=== PATIENT | female | born 1965 | race Caucasian/White ===

== ENCOUNTER 2018-12-12 17:45 | Emergency (ER) | payer OTHER ==
[~2018-12-12] VITALS: Ht 152.4 cm; Wt 68.0 kg
[2018-12-12 18:10] LABS: URINE BILIRUBIN NEGATIVE (Negative); URINE BLOOD 3+ (Negative); URINE CLARITY CLEAR; URINE COLOR YELLOW; URINE GLUCOSE-RANDOM* NEGATIVE (Negative); URINE KETONES NEGATIVE (Negative); URINE LEUKOCYTES-REFLEX TRACE (Negative); URINE NITRITE-REFLEX NEGATIVE (Negative); URINE PROTEIN (DIPSTICK) NEGATIVE (Negative); URINE SPECIFIC GRAVITY <= 1.005 (1.005-1.035); URINE UROBILINOGEN 0.2 E.U./dl (0.2-1.0)
[2018-12-12 18:23] LABS: BACTERIA-REFLEX 1-9 Few /HPF (None Seen); CASTS None Seen /LPF (None Seen); CRYSTALS None Seen /LPF (None Seen); SQUAMOUS >10 Many /LPF (0-3); URINE RBC 0-2 Rare /HPF (0-2); URINE WBC-REFLEX 6-15 Few /HPF (0-5)
[2018-12-12 18:27] LABS: BASOPHILS 0.4 % (0.0-2.0); EOSINOPHILS 1.2 % (0.0-3.0); HEMATOCRIT 36.5 % (37.0-47.0); HEMOGLOBIN 12.3 gm/dL (12.0-15.0); MCH 28.8 pg (26.0-34.0); MCHC 33.6 g/dL (28.0-37.0); MCV 85.9 fL (80.0-100.0); MONOCYTES 11.6 % (1.0-8.0); PLATELET COUNT 273 thou/uL (150-400); POLYS 59.8 % (36.0-66.0); RBC 4.25 mil/uL (4.20-5.00); RDW 18.4 % (10.5-14.5); WBC 6.7 thou/uL (4.0-11.0)
[2018-12-12 21:14] VITALS: BP 130/74
== END 2018-12-12 22:49 | disposition short-term general hospital (02) ==
LOC: ER 17:45
PROVIDERS: Emergency Medicine
DX: O02.0 Blighted ovum and nonhydatidiform mole (principal); Z87.891 Personal history of nicotine dependence; Z98.890 Other specified postprocedural states